=== PATIENT | female | born 1970 | race Caucasian/White ===

== ENCOUNTER 2024-04-15 06:11 | Emergency (ER) | payer OTHER, SELFPAY ==
[2024-04-15] VITALS (12 sets, daily range): BP systolic 106–133; BP diastolic 74–95; BMI 21.4
[2024-04-15 07:11] LABS: Troponin I < 0.012 ng/ml
--- NOTE | 2024-04-15 10:01 | ED.GENMED ---
History of Present Illness
General
Chief Complaint: Cardiac Symptoms
Source: patient and spouse
Time Seen by Provider: 04/15/24 09:27
History of Present Illness
History of Present Illness:
Slightly 54-year-old female with past medical history of breast cancer (completed treatments in April 2022 and currently not on any medications) presents to the emergency department for evaluation of palpitations that been ongoing since March
23 and have been relatively constant during that time. Patient states that this will often cause her some discomfort within her chest but is denying this currently but is noting some upper abdominal discomfort as well. Patient endorsed some slight
nausea but no change in p.o. intake. She denies any fevers or infectious symptoms or any recent illnesses, diaphoresis, exertional dyspnea, orthopnea, cough, PND, lower extremity edema or any other concerns. Social history was noted for very
infrequent alcohol use. No recent prolonged travel.
Past History
Past History
ED Past Medical History: Cancer (breast); Negative IDDM or NIDDM
ED Past Surgical History: Other (Abdominoplasty)
Social History
Tobacco: Non-smoker
Alcohol: None
Drug: None
Personal:
Living: with family
Employment: Employed
Family History
Family History: Other
Review of Systems
Review of Systems
All Other Systems: ROS reviewed and negative except as documented in HPI and ROS
Phy Exam
Physical Exam
Physical Exam:
GENERAL: Alert , in no apparent distress
HEAD: NCAT
EYE: clear conjunctiva
NECK: Supple
ENT: o/p clr, mmm.
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
LUNGS: Clear breath sounds bilaterally, no acute respiratory distress, no wheezes/rales/rhonchi
ABDOMEN: Soft, without focal tenderness, no r/g, no cvat
NEUROLOGICAL: Alert and oriented
SKIN: Warm and dry, skin intact.
MUSCULOSKELETAL: No edema, well perfused.
PSYCH: Normal and appropriate interaction.
Scores
Heart Failure Risk
Heart Failure Risk Score: Not Applicable
Heart Score for Chest Pain Patients
STEMI patient?: No
History: Slightly or Non-Suspicious
ECG: Normal
Age: >45 - <65 years
Risk Factors: No Risk Factors
Troponin: </= Normal Limit
Heart Score for Chest Pain Patients: 1
Heart Score Risk: 2.5% MACE over next 6 weeks
Withdrawal Assessment of Alcohol
Withdrawal Assessment Completed?: Not applicable
Course
Orders/Labs/Results
Orders:
Orders
04/15/24
Electrocardiogram (*1) Stat
Reason for Study: Chest Pain
Comment: DONE
04/15/24 06:13
Electrocardiogram (*1) Urgent
Reason for Study: Chest Pain
EKG- Treatment ONCE
04/15/24 06:41
Troponin I Urgent
04/15/24 09:41
Metoprolol [Lopressor] 12.5 mg PO NOW STA
04/15/24 10:42
Complete Blood Count/With Diff Urgent
D-Dimer Urgent
Lipase Urgent
04/15/24 11:47
Comprehensive Metabolic Panel Urgent
TSH Reflex To Free T4 Urgent
04/15/24 12:33
CR Chest - 2 Views Urgent
Comment:
Reason For Exam: palpitations, chest discomfort
Abnormal Lab Results
04/15/24
10:42
WBC 4.6 L 10^3/uL
(4.8-10.8)
RBC 3.84 L 10^6/uL
(4.20-5.40)
MCV 102.9 H fL
(81.0-99.0)
MCH 35.4 H pg
(27.0-31.0)
04/15/24 10:42
04/15/24 11:47
Vital Signs
Initial and Last Documented VS:
Initial Vital Signs
Temp Pulse Resp BP Pulse Ox
97.4 F 78 20 130/82 98
04/15/24 06:18 04/15/24 06:18 04/15/24 06:18 04/15/24 06:18 04/15/24 06:18
Last Documented Vital Signs
Temp Pulse Resp BP Pulse Ox
98.7 F 79 14 110/78 98
04/15/24 09:40 04/15/24 12:30 04/15/24 12:30 04/15/24 12:00 04/15/24 12:30
MDM/Problems Addressed
Differential Diagnosis Includes:
ectopy/PAC's, arrythmia, PE, electrolyte disturbance, atypical ACS presentation
MDM/Problems Addressed:
54-year-old female presenting to the ER for evaluation of continuous palpitations since April 07, she did see her medical oncologist yesterday as part of a routine follow-up and blood trending and she had noted PACs at that time but she reports
her labs were otherwise reassuring. Patient is hemodynamically stable here. Telemetry does reveal frequent PACs which I suspect is the main cause for patient's symptoms. Will recheck some labs including a D-dimer based off of patient's cancer
history although I am less suspicious for PE as a likely diagnosis. Will check labs and symptomatically treat with a low-dose of metoprolol to see if this helps with patient's symptoms. Anticipate likely need for outpatient cardiac follow-up.
*Pulse Oximetry
Patient hypoxic: no
*EKG
Heart Rate: 77
Rate: normal
Rhythm: sinus and PAC's
Homer: normal axis
Ischemia: no ischemia
*Assessment Analyst Interpretation
Rate: normal
Rhythm: sinus and PAC's
*Critical Care Note
Total Time (30-74mins, 75-104mins- exclusive of procedures): Not Applicable
Data Reviewed
Review of Other/Old Records Reveals: Labs and Records
Source: patient
Patient Management
Social determinants of health affecting care: Living situation and Strong social support
Escalation/DeEscalation of care consider admission/obs:
Patient's ER workup is largely unremarkable. She remains hemodynamically stable. Continues with PACs on telemetry despite the p.o. dose of metoprolol however given patient's already baseline low blood pressure I am hesitant to give her a second
dose. Her remaining lab work is unremarkable. Will help expedite follow-up by notifying the chest pain hotline. Patient aware of return precautions. She will also follow-up with primary care provider.
ED Attending Note
-
Portions of this chart may have been created with voice recognition software.� Occasional wrong word or��sound alike� substitutions may have occurred due to the inherent limitations of voice recognition software.
Discharge Plan
Departure
Patient Disposition: Home (Routine Discharge)
Date of Disposition: 04/15/24
Time of Disposition: 12:53
Patient with high blood pressure during this ER visit?: No
Discharge Problem:
Heart palpitations, Atrial contractions, premature
Instructions: Chest Pain CBC Follow Up
Prescriptions:
New
metoprolol tartrate 25 mg tablet
12.5 mg PO ONCE PRN (Reason: palpitations) Qty: 10 0RF
No Action
acetaminophen [Tylenol Ex Str Rapid Release] 500 mg Tablet
1,000 mg PO Q6H PRN (Reason: pain)
escitalopram oxalate [Lexapro] 10 mg Tablet
10 mg PO DAILY
multivit [id number]-[id number] 1-dha 18 mg iron- 1 mg-300 mg Capsule
1 cap PO DAILY
ondansetron HCl [Zofran] 4 mg Tablet
4 mg PO Q6H
lorazepam [Ativan] 1 mg Tablet
1 mg PO BID PRN (Reason: chemotherapy)
Keytruda 25 mg/mL Solution
200 mg IV Q3W
albuterol sulfate [ProAir HFA] 90 mcg/actuation Hfa Aerosol Inhaler
1 puff INHALATION Q4HPRN PRN (Reason: shortness of breath) Qty: 8.5 0RF
Referrals:
UNKNOWN - PT DOES,NOT KNOW [Family Provider] -
Interventions
Interventions:
*Risk Screen - Suicide Last Done: 04/15/24 06:18
*General Assessment Last Done: 04/15/24 09:40
*Neglect/Abuse Screening Last Done: 04/15/24 06:18
ED- Fall Risk Assessment Last Done: 04/15/24 09:40
*ED COVID-19 Vaccine History Last Done: 04/15/24 09:40
*Nursing Disposition Last Done: 04/15/24 13:18
ED- Pulmonary Assessment Last Done: 04/15/24 09:40
ED- Cardiac Assessment Last Done: 04/15/24 09:40
Discharge Date and Time
Discharge Date/Time: 04/15/24 13:20
Print Language: [id number]
[2024-04-15] MEDS: LOPRESSOR 12.5 MG PO (10:47)
[2024-04-15 11:13] LABS: % Basophils 1.1 % (0-2); % Eosinophils 3.1 % (0-6); % Lymphocytes 29.2 % (20.5-51.1); % Neutrophils 57.6 % (42.2-75.2); Absolute Basophils 0.1 10^3/uL (0-0.2); Absolute Eosinophils 0.1 10^3/uL (0-0.7); Absolute Lymphocytes 1.3 10^3/uL (1.2-3.4); Absolute Monocytes 0.4 10^3/uL (0.1-0.6); Absolute Neutrophils 2.6 10^3/uL (1.4-6.5); Hematocrit 39.5 % (37.0-47.0); Hemoglobin 13.6 g/dL (12.0-16.0); Mean Corp Hgb Conc. 34.4 g/dL (33.0-37.0); Mean Corpuscular Hgb 35.4 pg (27.0-31.0); Mean Corpuscular Volume 102.9 fL (81.0-99.0); Mean Platelet Volume 8.9 fL (7.4-10.4); Nucleated Red Blood Cells % 0 %; Platelet Count 213 10^3/uL (130-400); Red Blood Cell Count 3.84 10^6/uL (4.20-5.40); Red Cell Dist. Width 12.8 % (11.5-14.5); White Blood Cell Count 4.6 10^3/uL (4.8-10.8)
[2024-04-15 11:29] LABS: Lipase 75 U/L (23-300)
[2024-04-15 12:12] LABS: D-Dimer < 0.27 ug/mlFEU (0.00-0.50)
[2024-04-15 12:20] LABS: ALT (SGPT) 18 U/L (0-35); AST (SGOT) 28 U/L (14-36); Albumin 4.5 g/dl (3.5-5.0); Alkaline Phosphatase 65 U/L (38-126); Blood Urea Nitrogen 9 mg/dl (7-17); Calcium 9.9 mg/dl (8.4-10.2); Carbon Dioxide 24 mmol/L (22-30); Chloride 104 mmol/L (98-107); Estimated Creatinine Clearance 87 ml/min; Glucose 90 mg/dl (70-99); Potassium 4.2 mmol/L (3.5-5.1); Sodium 136 mmol/L (135-145); Total Bilirubin 0.5 mg/dl (0.2-1.3); eGFR > 60.00
[2024-04-15 12:51] LABS: TSH Reflex To Free T4 2.31 uIU/ml (0.47-4.68)
== END 2024-04-15 13:20 | disposition home or self-care (01) ==
LOC: EMR 06:11
PROVIDERS: Emergency Medicine; Physician Assistant Medical; EMERGENCY PHYSICIAN Emergency Medicine
DX: R00.2 Palpitations (principal); I49.1 Atrial premature depolarization; Z85.3 Personal history of malignant neoplasm of breast
CPT/HCPCS: 99283; 71046; 80053; 83690; 84443; 84484; 85025; 85379; 93005